=== PATIENT | male | born 1940 ===

== ENCOUNTER 2018-08-11 18:03 | Emergency (ER) | payer MEDICARE, MEDICAID ==
[2018-08-11 18:05] VITALS: BMI 23.5
[2018-08-11 18:18] VITALS: O2SAT 98
--- NOTE | 2018-08-11 18:21 | ED PDOC ---
HPI: Psych/Substance Abuse Time Seen by Provider: 08/11/18 18:15 Chief Complaint (Nursing): Psychiatric Evaluation Chief Complaint (Provider): Insomnia History Per: Patient, Family Additional Complaint(s): patient is a 78 year old male with past medical history of Alzheimer's dementia, HTN, DM presents to the ED for worsening forgetfulness, increased agitation and difficulty sleeping at night. Patient was brought to the ED by his , Myesha Giordano. She states that the patient has been having memory lapses and wandering more frequently, especially at night. Pt is not sleeping and has become increasingly more agitated in the last 24 hours. He has been stepping out of the house when everybody is sleeping. Per the family, the patient was diagnosed with hydrocephalus in [address] Alicia Blancas (Neurologist). Patient has also been incontinent of urine since his prostate surgery in 2006. Denies hx of falls, fevers, chills, headaches, dizziness, cp, palpitations, sob, abdominal pain, urinary symptoms, changes in bowel habits. Last BM was this afternoon. PMD: Dr Jonathan Lopez (last visit was 5 months ago) Allergies: NKDA Medications: Atorvastatin 10mg PO HS, Januvia 50mg, Metformin (dose unknown), Zoloft 50mg, Enalapril 20mg Medical Hx: HTN, Alzheimer's dementia, DM, HLD Surgical Hx: Prostate surgery in 2006 Social Hx: Former smoker, quit 7 years ago (smoked for 10-15 years); denies alcohol, tobacco use; lives with , has four children in [place] Family Hx: Denies Past Medical History Reviewed: Historical Data, Nursing Documentation, Vital Signs Vital Signs: Last Vital Signs Temp 98.6 F 08/11/18 18:14 Pulse 90 08/11/18 18:14 Resp 16 08/11/18 18:14 BP 119/66 08/11/18 18:14 Pulse Ox 98 08/11/18 18:14 - Medical History PMH: Alzheimer's Disease (yes, per [facility] report), HTN, Hypercholesterolemia, Parkinson's Disease Denies: Chronic Kidney Disease - Surgical History Other surgeries: TURP - Family History Family History: States: Unknown Family Hx - Living Arrangements Living Arrangements: With Family - Social History Current smoker - smoking cessation education provided: No Ex-Smoker (has not smoked in the last 12 months): Yes Alcohol: None Drugs: Denies - Immunization History Hx Tetanus Toxoid Vaccination: No Hx Influenza Vaccination: No Hx Pneumococcal Vaccination: No - Home Medications Home Medications: Ambulatory Orders Medication Instructions Recorded Enalapril Maleate [Vasotec] 20 mg PO DAILY tab 11/17/17 Sitagliptin Phos/Metformin HCl 1 each PO BID 04/26/18 [Janumet 50-500 mg Tablet] Tamsulosin [Flomax] 0.4 mg PO DAILY 30 Days cap 05/07/18 Lacosamide [Vimpat] 100 mg PO BID #60 tab 05/08/18 Risperidone [Risperdal] 1 mg PO HS #7 tablet 08/11/18 - Allergies Allergies/Adverse Reactions: Allergies Allergy/AdvReac Type Severity Reaction Status Date / Time No Known Allergies Allergy Verified 08/11/18 18:14 Review of Systems ROS Statement: Except As Marked, All Systems Reviewed And Found Negative Neurological: Positive for: Altered Mental Status Physical Exam - Reviewed Nursing Documentation Reviewed: Yes Vital Signs Reviewed: Yes - Physical Exam Appears: Positive for: Well, Non-toxic, No Acute Distress Head Exam: Positive for: ATRAUMATIC, NORMAL INSPECTION, NORMOCEPHALIC Skin: Positive for: Normal Color, Warm, DRY Eye Exam: Positive for: EOMI, Normal appearance, PERRL ENT: Positive for: Normal ENT Inspection Neck: Positive for: Normal, Painless ROM Cardiovascular/Chest: Positive for: Regular Rate, Rhythm Respiratory: Positive for: CNT, Normal Breath Sounds Gastrointestinal/Abdominal: Positive for: Normal Exam, Soft Back: Positive for: Normal Inspection Extremity: Positive for: Normal ROM Neurologic/Psych: Positive for: Alert, Oriented - Laboratory Results Result Diagrams: 08/11/18 18:57 08/11/18 18:57 - ECG O2 Sat by Pulse Oximetry: 98 Medical Decision Making Medical Decision Making: Diagnostics ordered. Pt has remained calm and pleasent during ED stay Case d/w Dr. Lopez, all diagnostics reviewed including Head CT at night time for sleep. Pt stable for discharge at this time, Dr. Lopez suggested trial of Risperdal at night for sleep and he will follow up with Pt next week. Plan of action discussed with Family who demonstrated full understanding Disposition - Clinical Impression Clinical Impression: Dementia - Patient ED Disposition Is Patient to be Admitted: No - Disposition Disposition: Routine/Home Disposition Time: 19:57 Condition: STABLE Additional Instructions: Follow up with Dr. Lopez on Monday! Prescriptions: Risperidone [Risperdal] 1 mg PO HS #7 tablet Instructions: Dementia (Including Alzheimer Disease) Forms: [email or web address] (Sing[place]an), [employer] (Uzbek)
[2018-08-11 19:07] LABS: BASO # 0.1 K/uL (0.0-0.2); BASO % 0.8 % (0.0-2.0); EOS # 0.2 K/uL (0.0-0.7); EOS % 2.7 % (0.0-4.0); LYMPH # 2.7 K/uL (1.0-4.3); LYMPH % 32.8 % (20.0-40.0); MEAN CELL VOLUME 95.5 fl (80.0-94.0); MEAN CORPUSCULAR HEMOGLOBIN 32.2 pg (27.0-31.0); MEAN CORPUSCULAR HGB CONC 33.7 g/dL (33.0-37.0); MEAN PLATELET VOLUME 10.2 fl (7.2-11.7); MONO # 0.8 K/uL (0.0-0.8); MONO % 10.2 % (0.0-10.0); NEUT # 4.4 K/uL (1.8-7.0); NEUT % 53.5 % (50.0-75.0); NRBC % 0.1 % (0.0-0.0); RBC 4.07 Mil/uL (4.40-5.90); RED CELL DISTRIBUTION WIDTH 14.6 % (11.5-14.5); WHITE BLOOD COUNT 8.2 K/uL (4.8-10.8)
[2018-08-11 19:16] LABS: ALB/GLOB RATIO 1.2 (1.0-2.1); ALBUMIN 4.2 g/dL (3.5-5.0); ALT/SGPT 21 U/L (21-72); AST/SGOT 24 U/L (17-59); BLOOD UREA NITROGEN 31 mg/dl (9-20); CALCIUM 9.7 mg/dL (8.4-10.2); GFR NON-AFRICAN AMERICAN 54
[2018-08-11 19:24] LABS: HEMOGLOBIN 13.1 g/dL (12.0-18.0)
[2018-08-11 19:27] LABS: URINE BILIRUBIN NEGATIVE (NEGATIVE); URINE BLOOD MODERATE (NEGATIVE); URINE CLARITY CLEAR (Clear); URINE COLOR YELLOW (YELLOW); URINE GLUCOSE (UA) NEG (Normal); URINE LEUKOCYTE ESTERASE NEG Leu/uL (Negative); URINE PROTEIN NEGATIVE (NEGATIVE); URINE UROBILINOGEN 0.2-1.0 mg/dL (0.2-1.0)
[2018-08-11 20:25] VITALS: BP 136/79; PULSE 75; RESP 18; TEMP 98.5
--- NOTE | 2018-08-12 08:00 | CARD ---
APPROVED REPORT Date of service: 08/11/2018 EKG Measurement Heart [id number] <Conclusion> Normal sinus rhythm Normal ECG
--- NOTE | 2018-08-12 08:42 | RAD ---
Date of service: 08/11/2018 PROCEDURE: CHEST RADIOGRAPH, 1 VIEW HISTORY: med screening COMPARISON: None available. FINDINGS: LUNGS: Single portable view of the chest was performed. Mild bibasilar volume loss and interstitial changes noted. No focal infiltrate, CHF, and/or pleural effusion is seen. Aorta is normal in size. PLEURA: No pneumothorax or pleural fluid seen. CARDIOVASCULAR: Normal. OSSEOUS STRUCTURES: No significant abnormalities. VISUALIZED UPPER ABDOMEN: Normal. OTHER FINDINGS: None. IMPRESSION: No active disease.
--- NOTE | 2018-08-12 11:02 | CT ---
Date of service: 08/11/2018 PROCEDURE: CT HEAD WITHOUT CONTRAST. HISTORY: AMS COMPARISON: None available. TECHNIQUE: Axial computed tomography images were obtained through the head/brain without intravenous contrast. Radiation dose: Total exam DLP = 1187 mGy-cm. This CT exam was performed using one or more of the following dose reduction techniques: Automated exposure control, adjustment of the mA and/or kV according to patient size, and/or use of iterative reconstruction technique. FINDINGS: HEMORRHAGE: No intracranial hemorrhage. BRAIN: No mass effect or edema. There is evidence of mild diffuse cerebral cortical atrophy. In addition there is evidence of a right posterior parietal shunt catheter with its tip extending through the right lateral ventricle and into the left frontal horn region with its tip ending slightly lateral to the left lateral ventricle. There is evidence of right and left craniotomy. Areas of mild scattered decreased density is seen in the periventricular white matter suggesting mild microvascular small-vessel change or periventricular leukomalacia. VENTRICLES: Ventricles are moderately dilated with lesser degree dilatation of the 4th ventricle. Aqueduct appears grossly patent. Correlation with prior studies would be suggested. CALVARIUM: See above. PARANASAL SINUSES: Clear MASTOID AIR CELLS: Unremarkable as visualized. No inflammatory changes. OTHER FINDINGS: None. IMPRESSION: Status post right ventricular shunt catheter placement and bilateral craniotomy. Ventricles are moderately dilated with slight lesser degree dilatation of the 4th ventricle. Catheter tip extends into the left frontal horn but may and just lateral to the left frontal horn region. Correlation with prior studies is strongly suggested. No intracranial hemorrhage or recent infarct. This agrees with preliminary report provided by the on-call radiologist.
== END 2018-08-11 20:26 | disposition home or self-care (01) ==
LOC: H.ER 18:03
DX: F02.80 Dementia in other diseases classified elsewhere, unspecified severity, without behavioral disturbance, psychotic disturbance, mood disturbance, and anxiety (principal); G47.00 Insomnia, unspecified; G30.9 Alzheimer's disease, unspecified; G91.9 Hydrocephalus, unspecified; E11.9 Type 2 diabetes mellitus without complications; Z79.84 Long term (current) use of oral hypoglycemic drugs; I10 Essential (primary) hypertension; E78.00 Pure hypercholesterolemia, unspecified; G20 Parkinson's disease; Z79.899 Other long term (current) drug therapy